=== PATIENT | female | born 1975 | race Caucasian/White ===

== ENCOUNTER 2017-07-27 19:07 | Emergency (ER) | payer BC ==
[2017-07-27] MEDS ORDERED: Tetan/Diph/Pertus SYR(Tdap)* 0.5 ML SYR(BOOSTRIX) use SYR IM ONE (22:09)
--- NOTE | 2017-07-27 22:09 | ED ---
Laceration/Wound HPI - HPI Summary HPI Summary: 41F presents with laceration to right palm. She was cutting a pumpkin and got the laceration. She has full ROM. no numbness or tingling. her tetanus is up to date. has minimal pain. no active bleeding. is right handed. - History of Current Complaint Stated Complaint: RT HAND LAC Time Seen by Provider: 07/27/17 20:36 Pain Intensity: 4 - Allergy/Home Medications Allergies/Adverse Reactions: Allergies Allergy/AdvReac Type Severity Reaction Status Date / Time No Known Allergies Allergy Verified 07/27/17 19:17 PMH/Surg Hx/FS Hx/Imm Hx Endocrine/Hematology History: Denies: Hx Anticoagulant Therapy Cardiovascular History: Denies: Hx Pacemaker/ICD Sensory History: Denies: Hx Hearing Aid Psychiatric History: Denies: Hx Panic Disorder - Surgical History Surgery Procedure, Year, and Place: breast lumps rt side - Immunization History Date of Tetanus Vaccine: 2010 Immunizations Up to Date: No Infectious Disease History: No Infectious Disease History: Denies: Traveled Outside the in Last 30 Days - Family History Known Family History: Negative: Diabetes - Social History Alcohol Use: Occasionally Substance Use Type: Reports: None Smoking Status (MU): Never Smoked Tobacco Review of Systems Negative: Fever Negative: Chest Pain Negative: Shortness Of Breath Positive: Other - laceration right hand All Other Systems Reviewed And Are Negative: Yes Physical Exam Triage Information Reviewed: Yes Vital Signs On Initial Exam: Initial Vitals Temp Pulse Resp BP Pulse Ox 98.6 F 60 16 137/74 97 07/27/17 19:17 07/27/17 19:17 07/27/17 19:17 07/27/17 19:17 07/27/17 19:17 Vital Signs Reviewed: Yes Appearance: Positive: Well-Appearing Skin: Positive: Warm, Dry, Other - 2 2cm superficial lacerations that area parallel to one another with 1/4cm in between lacerations Head/Face: Positive: Normal Head/Face Inspection Eyes: Positive: Normal, Conjunctiva Clear Respiratory/Lung Sounds: Positive: Clear to Auscultation, Breath Sounds Present Cardiovascular: Positive: Normal, RRR Musculoskeletal: Positive: Strength/ROM Intact - right hand, Other - capillary refill<2 secs, sensation grossly intact Neurological: Positive: Normal Psychiatric: Positive: Normal - Dinah Coma Scale Coma Scale Total: 15 Procedures - Laceration/Wound Repair 1 Location: Other - right hand lacerations Description: Linear Anesthesia: Local, 1.0% Length, Depth and Shape: 2 2cm superficial lacerations that area parallel to one another Betadine Prep?: Yes Irrigated w/ Saline (ccs): 200 Laceration/Wound Explored: no foreign body removed Closure: Single Layer Suture Type: Prolene - 4-0 Number of Sutures: 4 - 2 in each lacerations Layer Closure?: No Sterile Dressing Applied?: Yes - telfa and starr Diagnostics - Vital Signs Vital Signs Temp Pulse Resp BP Pulse Ox 07/27/17 19:17 98.6 F 60 16 137/74 97 - Laboratory Lab Statement: Any lab studies that have been ordered have been reviewed, and results considered in the medical decision making process. Laceration Repair Course/Dx - Course Course Of Treatment: 41F presents with laceration to right palm. She was cutting a pumpkin and got the laceration. She has full ROM. no numbness or tingling. her tetanus is up to date. has minimal pain. no active bleeding. is right handed. on exam has two lacerations parrell to each other than are 2cm each and superificial. placed 4 sutures. wrapped in starr. warned that skin between laceration may because how thin it is. patient understands and agrees with plan. - Differential Dx Differental Diagnoses: Abrasion, Avulsion, Laceration - Clinical Impression Provider Diagnoses: Laceration of right hand Discharge - Discharge Plan Condition: Good Disposition: HOME Patient Education Materials: Care For Your Stitches (ED) Referrals: Zina Singleton MD [Primary Care Provider] - Additional Instructions: Take Tylenol or ibuprofen for pain Keep area clean and dry for 24 hours Return to ED, urgent care, or primary in 10-14 days to have sutures removed Return to ED if develop signs of infection such as fever, spreading redness, or pus.
[2017-07-27 22:38] VITALS: BP 122/68
== END 2017-07-27 22:38 | disposition home or self-care (01) ==
LOC: ED 19:07
DX: S61.411A Laceration without foreign body of right hand, initial encounter (principal); W45.8XXA Other foreign body or object entering through skin, initial encounter; Y93.G9 Activity, other involving cooking and grilling; Y92.9 Unspecified place or not applicable
CPT/HCPCS: 12001; 90471; 90715; 99282

== ENCOUNTER 2024-02-04 10:55 | Observation (INO) ==
[2024-02-04 11:25] LABS: ABS Monocytes 0.6 10^3/uL (0.0-0.9); ABS Neutrophils 5.9 10^3/uL (1.5-7.6); Eosinophil % 0.4 %; Hematocrit 40.1 % (35-45); Hemoglobin 13.4 g/dL (11.5-14.3); Lymphocyte % 12.9 %; Mean Corpuscular Hemoglobin 30.4 pg (27-33); Mean Corpuscular Hgb Conc 33.4 g/dL (31-36); Mean Corpuscular Volume 91.2 fL (80-97); Mean Platelet Volume 8.5 fL (7.5-11.2); Platelet Count 269 10^3/uL (150-450); Red Cell Distribution Width 12.9 % (12-17); White Blood Count 7.6 10^3/uL (3.8-11.8)
[2024-02-04 11:31] LABS: INR 0.97 (0.83-1.13)
[2024-02-04 11:51] LABS: High Sens Troponin Baseline 5 pg/mL (<15)
[2024-02-04 12:07] LABS: ALT 14 U/L (7-52); AST 16 U/L (13-39); Albumin 4.4 g/dL (3.2-5.2); Albumin/Globulin Ratio 1.8 (1-3); Alkaline Phosphatase 34 U/L (35-149); Anion Gap 10 mmol/L (2-16); Blood Urea Nitrogen 17 mg/dL (6-24); CO2 Carbon Dioxide 26 mmol/L (22-32); Calcium 9.3 mg/dL (8.6-10.3); Chloride 104 mmol/L (101-111); Creatinine, Serum 0.77 mg/dL (0.51-0.95); Globulin 2.5 g/dL (2-4); Glucose 98 mg/dL (70-100); Sodium 140 mmol/L (135-145); Total Bilirubin 0.7 mg/dL (0.2-1.0); Total Protein 6.9 g/dL (6.4-8.9); eGFR CKD-EPI 96.3 (>60)
[2024-02-04] MEDS: Lactated Ringers 1000 ml BAG 1,000 ML IV ONE (12:11)
[2024-02-04 13:12] LABS: High Sensitivity Troponin 1 Hr 5 pg/mL (<15)
[2024-02-04 13:57] LABS: Urine Benzodiazepine Screen None Detected (None Detect); Urine Cannabinoids Screen None Detected (None Detect); Urine Opiates Screen None Detected (None Detect)
[2024-02-04 15:01] LABS: Acetaminophen < 15 mcg/mL; Alcohol, S < 13 mg/dL (<13)
[2024-02-04 15:17] LABS: Magnesium 1.7 mg/dL (1.9-2.7); Salicylate < 2.50 mg/dL (<30)
[2024-02-04 15:57] LABS: Acetaminophen < 15 mcg/mL; Alcohol, S < 13 mg/dL (<13); Salicylate < 2.50 mg/dL (<30)
[2024-02-05 09:23] VITALS: BP 123/80
== END 2024-02-05 13:40 | disposition home or self-care (01) ==
LOC: EDHOLD 10:55 → ED 10:55 → MED 16:47
PROVIDERS: ADMIT Internal Medicine; ATTEND Internal Medicine